=== PATIENT | female | born 1990 | race Caucasian/White ===

== ENCOUNTER 2017-02-27 23:50 | Emergency (ER) | payer SELFPAY ==
--- NOTE | 2017-02-28 00:14 | ED Physician Chart ---
ED Chief Complaint/HPI - Patient Information Date Seen:: 02/28/17 Time Seen:: 00:10 Chief Complaint:: Medical evaluation request by peace office History of Present Illness:: 26 yo female was brought to ER for medical evaluation requested by combatant diver officer from [facility] department. The patient stated that she has been drinking one bottle and a half of vodka daily and her last time drinking alcohol was about 4 hours ago. Currently, the patient has mild tremor of bilateral upper extremities. Allergies:: Allergies Allergy/AdvReac Type Severity Reaction Status Date / Time No Known Allergies Allergy Verified 02/28/17 00:03 ED Review of Systems - Review of Systems General/Constitutional: No fever, No chills Skin: No skin lesions Eyes: No loss of vision ENT: No earache Neck: No neck pain Cardio Vascular: No chest pain, Palpitations Pulmonary: No SOB GI: No nausea, No vomiting G/U: Dysuria Musculoskeletal: No bone or joint pain Psychiatric: Anxiety Neurological: No focal symptoms ED Past Medical History - Past Medical History Past Medical History: HTN, Other (Cervical cancer, left ovarian cyst, pre- diabetes, chlamydia) Social History: Non Smoker, Alcohol, Illicit Drug Use (methamphetamine) Family Medical History - Family Member Mother History Unknown: Yes ED Physical Exam - Physical Examination General/Constitutional: Awake, Alert Head: Atraumatic Eyes: PERRL, EOMI Skin: No ecchymosis ENMT: Lips, teeth, gums nl Neck: No nuchal rigidity Respiratory: Clear to Auscultation, No Wheeze/Rhonchi/Rales Cardio Vascular: RRR, No murmur, gallop, rubs, NL S1 S2 Other Cardio Vascular comments:: Tachycardia GI: No tenderness/rebounding/guarding Other Extremities comments:: Tremor in bilateral hands Neuro/Psych: No focal deficits ED Labs/Radiology/EKG Results - Lab Results Results: UA: WBC esterase positive Urine test: negative Urine drug screen: amphetamine+, methamphetamine+, benzodiazepine+ ED Assessment - Assessment General Assessment: UTI Amphetamine use Critical Care Time: 30 min Excludes all billable procedures: Yes This condition life threatening/high prob of deterioration: No Assessment/Comments:: UA, urine drug screen, urine test Librium 20mg PO Bactrim DS 1 tab PO ED Septic Shock - . Is Septic Shock (SBP<90, OR Lactate>4 mmol\L) present?: No ED Reassessment (Disposition) - Reassessment Reassessment Condition:: Improved - Aftercare/Follow up Instructions Aftercare/Follow-Up Instructions:: Counseled pt regarding lab results/diagnosis & need follow up, Refer to Discharge Instructions - Patient Disposition Discharge/Transfer:: [facility]ter/[facility] ED Discharge Plan - Patient Disposition Admit/Discharge/Transfer: Shelter/[facility] Instructions: Alcohol Withdrawal, Urinary Tract Infection, [id number] Additional Instructions: follow up with PMD or to [facility]
[2017-02-28 00:33] LABS: URINE BILIRUBIN NEGATIVE (NEGATIVE); URINE BLOOD TRACE (NEGATIVE); URINE COLOR YELLOW; URINE GLUCOSE (UA) NEGATIVE (NEGATIVE); URINE KETONE TRACE mg/dL (NEGATIVE); URINE PH 6.5 (4.6 - 8.0); URINE PROTEIN 30 mg/dL (NEGATIVE); URINE UROBILINOGEN 0.2 E.U./dL (0.2 - 1.0)
[2017-02-28 00:35] LABS: URINE BACTERIA NONE SEEN /hpf (NONE SEEN); URINE EPITHELIAL CELLS FEW /lpf (FEW); URINE WBC 0-2 /hpf (0-5)
[2017-02-28] MEDS ORDERED: Sulfamethoxazole/TMP 800/160mg Tab PO ONE (00:37)
[2017-02-28] MEDS ORDERED: Sulfamethoxazole/TMP 800/160mg Tab ONE (00:38)
[2017-02-28 00:43] LABS: AMPHETAMINE URINE POSITIVE (NEGATIVE); BARBITURATES URINE NEGATIVE (NEGATIVE); METHADONE URINE NEGATIVE (NEGATIVE)
== END 2017-02-28 00:49 | disposition still patient (30) ==
LOC: ER 23:50
DX: N39.0 Urinary tract infection, site not specified (principal); F15.10 Other stimulant abuse, uncomplicated; I10 Essential (primary) hypertension; C53.9 Malignant neoplasm of cervix uteri, unspecified
CPT/HCPCS: 80307; 81001-TC; 81025-TC; Z7502; Z7610